=== PATIENT | male | born 1995 | race Caucasian/White ===

== ENCOUNTER 2019-10-09 17:06 | Emergency (ER) | payer BC ==
[~2019-10-09] VITALS: Ht 182.9 cm; Wt 83.2 kg
[2019-10-09 17:16] VITALS: TEMP 97.9
[2019-10-09] MEDS ORDERED: ADDERALL XR25 MG PO (17:22)
[2019-10-09 18:12] LABS: C-REACTIVE PROTEIN 1.6 mg/dL (0.0-0.9)
[2019-10-09 18:25] LABS: TROPONIN-I < 0.012 ng/mL (0.000-0.035)
[2019-10-09 20:13] VITALS: BP 117/70; PULSE 71
== END 2019-10-09 20:18 | disposition home or self-care (01) ==
LOC: COL.ER 17:06
PROVIDERS: Emergency Medicine
DX: R07.9 Chest pain, unspecified (principal)